=== PATIENT | female | born 1940 | race Two or more races ===

== ENCOUNTER 2020-11-13 01:21 | Inpatient (IN) | payer OTHER, MEDICARE ==
[~2020-11-13] VITALS: Ht 172.7 cm; Wt 86.3 kg
[2020-11-13 02:58] LABS: Basophils # (auto) 0 10 ^3/uL (0-0.2); Basophils % (auto) 0.2 % (0.0-2.0); Eosinophils # (auto) 0 10 ^3/uL (0-0.8); Hematocrit 39.6 % (36.0-46.0); Hemoglobin 13.4 g/dL (12.2-16.2); Lymphocytes # (auto) 0.5 10 ^3/uL (0.4-5.4); Lymphocytes % (auto) 5.9 % (10.0-50.0); Mean Corpuscular Hgb Conc. 33.7 g/dL (32.0-36.0); Mean Corpuscular Volume 91.9 fL (80.0-100.0); Monocytes # (auto) 0.5 10 ^3/uL (0-1.3); Monocytes % (auto) 5.7 % (0.0-12.0); Neutrophils % (auto) 88.2 % (37.0-80.0); Nucleated Red Blood Cells % 0.1 %; Red Blood Cells 4.31 10^6/uL (4.0-5.20); Red Cell Distribution Width 13.5 % (11.8-14.3)
[2020-11-13] MEDS ORDERED: ONDANSETRON HCL 4 MG/2 ML VIAL IV ONE (03:00)
[2020-11-13] MEDS ORDERED: ACETAMINOPHEN 325 MG TAB PO ONE (03:00)
[2020-11-13 03:13] LABS: INR 1.03 (0.9-1.15); Partial Thromboplastin Time 32.5 sec (23.6-33.0)
[2020-11-13 03:17] LABS: Albumin 2.8 g/dL (3.4-5.0); Anion Gap 12 (5-15); Blood Urea Nitrogen 28 mg/dL (7-18); Calcium 8.7 mg/dL (8.5-10.1); Carbon Dioxide 23 mmol/L (21-32); Chloride 98 mmol/L (98-107); Glucose 219 mg/dL (74-106); Potassium 3.7 mmol/L (3.5-5.1); Sodium 133 mmol/L (136-145)
[2020-11-13 03:18] LABS: Alanine Aminotransferase 16 U/L (13-56); Aspartate Aminotransferase 32 U/L (15-37); BUN/Creatinine Ratio 19.7; GFR African American 46 mL/min; GFR Non-African American 38 mL/min
[2020-11-13 03:23] LABS: Alkaline Phosphatase 79 U/L (45-117); Bilirubin, Total 0.4 mg/dL (0.2-1.0); Total Protein 7.9 g/dL (6.4-8.2)
[2020-11-13] MEDS ORDERED: DexAMETHasone SOD PHOS 10MG/1ML VIAL INJ IV ONE (07:45)
[2020-11-13] MEDS ORDERED: AZITHROMYCIN 500MG/ 250ML 250 ML IV ONE (07:45)
[2020-11-13] MEDS ORDERED: cefTRIAXone 1GM/50ML D5W 50 ML IV ONE (07:45)
[2020-11-13] MEDS ORDERED: MORPHINE SULFATE INJECTION 2 MG/ML SYRG IV PRN (12:00)
[2020-11-13] MEDS ORDERED: NITROGLYCERIN 0.4 MG SL TAB SL PRN (12:00)
[2020-11-13] MEDS ORDERED: REMDESIVIR PER PHARMACY 0 ML IV SCH (12:45)
[2020-11-13] MEDS ORDERED: diphenhdrAMINE HCL 50 MG/1 ML VL IV PRN (12:45)
[2020-11-13] MEDS ORDERED: ONDANSETRON HCL 4 MG/2 ML VIAL IV PRN (13:45)
[2020-11-13] MEDS ORDERED: ACETAMINOPHEN 500 MG TAB PO PRN (13:45)
[2020-11-13] MEDS ORDERED: DEXTROSE (50%) 50ML SYRG IV PRN (13:45)
[2020-11-13] MEDS: SODIUM CHLORIDE 0.9% 1,000 ML IV SCH (13:58)
[2020-11-13] MEDS ORDERED: REMDESIVIR 200 MG in NS 210ml LOADING DOSE ADULT IV ONE (15:00)
[2020-11-13 17:00] VITALS: BP 161/79
[2020-11-13] MEDS: ACCU-CHEK COMFORT CURVE STRIP VI SCH ×2 (17:06→22:14)
[2020-11-13] MEDS: InsuLIN REG 1unit/0.01ml Soln (100units/ml) SC SCH ×2 (17:07→22:18)
[2020-11-13 17:13] VITALS: BP 161/79
[2020-11-13] MEDS: BUDESONIDE (INHALATION) 180 MCG IH IN SCH (21:36)
[2020-11-13] MEDS: ALBUTEROL SULF HFA 90MCG INH 200DOSE IN PRN (21:36)
[2020-11-13 22:00] VITALS: BP 152/84
[2020-11-13] MEDS: ENOXAPARIN SOD 40 MG/0.4 ML SYRINGE SC SCH (22:17)
[2020-11-13] MEDS: FLORASTOR (S. BOULARDII) 250 MG CAP PO SCH (22:26)
[2020-11-14] VITALS (9 sets, daily range): BP systolic 132–189; BP diastolic 58–78
[2020-11-14] MEDS: traMADol HCL 50 MG TAB PO PRN ×3 (02:04→21:37)
[2020-11-14] MEDS ORDERED: hydrALAZINE HCL 20 MG/ML VL IV ONE (03:15)
[2020-11-14 05:22] LABS: Basophils # (auto) 0 10 ^3/uL (0-0.2); Basophils % (auto) 0.1 % (0.0-2.0); Eosinophils # (auto) 0 10 ^3/uL (0-0.8); Hematocrit 36.3 % (36.0-46.0); Hemoglobin 12.3 g/dL (12.2-16.2); Lymphocytes # (auto) 0.5 10 ^3/uL (0.4-5.4); Lymphocytes % (auto) 7.3 % (10.0-50.0); Mean Corpuscular Hemoglobin 30.7 pg (28.0-32.0); Mean Corpuscular Hgb Conc. 33.8 g/dL (32.0-36.0); Mean Corpuscular Volume 90.8 fL (80.0-100.0); Monocytes # (auto) 0.5 10 ^3/uL (0-1.3); Monocytes % (auto) 7.1 % (0.0-12.0); Neutrophils # (auto) 6.1 10 ^3/uL (1.6-8.6); Neutrophils % (auto) 85.5 % (37.0-80.0); Nucleated Red Blood Cells % 0.1 %; Red Cell Distribution Width 13.7 % (11.8-14.3); White Blood Cell 7.1 10^3/uL (4.4-10.8)
[2020-11-14 05:38] LABS: Albumin 2.4 g/dL (3.4-5.0); Calcium 8.6 mg/dL (8.5-10.1); Potassium 3.5 mmol/L (3.5-5.1)
[2020-11-14 05:43] LABS: BUN/Creatinine Ratio 29.7; Bilirubin, Total 0.4 mg/dL (0.2-1.0); Total Protein 7.2 g/dL (6.4-8.2)
[2020-11-14] MEDS: SODIUM CHLORIDE 0.9% 1,000 ML IV SCH ×2 (06:36→08:00)
[2020-11-14] MEDS: ACCU-CHEK COMFORT CURVE STRIP VI SCH ×3 (06:36→17:58)
[2020-11-14] MEDS: InsuLIN REG 1unit/0.01ml Soln (100units/ml) SC SCH ×3 (06:42→17:58)
[2020-11-14] MEDS: ALBUTEROL SULF HFA 90MCG INH 200DOSE IN PRN ×2 (07:07→22:02)
[2020-11-14] MEDS: BUDESONIDE (INHALATION) 180 MCG IH IN SCH ×2 (07:07→22:02)
[2020-11-14] MEDS: cefTRIAXone 1GM/50ML D5W 50 ML IV SCH (09:00)
[2020-11-14] MEDS: DexAMETHasone SOD PHOS 10MG/1ML VIAL INJ IV SCH (09:56)
[2020-11-14] MEDS: AZITHROMYCIN 500MG/ 250ML 250 ML IV SCH (09:56)
[2020-11-14] MEDS: ZINC SULFATE 220mg CAP or TAB PO SCH (09:57)
[2020-11-14] MEDS: CHOLECALCIFEROL (VITD3) 2,000 UNIT CAP/TAB PO SCH (09:57)
[2020-11-14] MEDS: ASCORBIC ACID 1,000 MG TAB PO SCH (09:57)
[2020-11-14] MEDS: PANTOPRAZOLE 40 MG TAB PO SCH (09:57)
[2020-11-14] MEDS: FLORASTOR (S. BOULARDII) 250 MG CAP PO SCH (09:57)
[2020-11-14] MEDS: ENOXAPARIN SOD 40 MG/0.4 ML SYRINGE SC SCH ×2 (09:58→21:37)
[2020-11-14] MEDS ORDERED: DEXTROSE (50%) 50ML SYRG IV PRN (11:45)
[2020-11-14] MEDS: REMDESIVIR 100mg 100 MG in SODIUM CHL 0.9% 230 ML IV SCH (15:00)
[2020-11-14] MEDS ORDERED: amLODIPine BESYLATE 5 MG TAB PO ONE (15:15)
[2020-11-15] MEDS: ACCU-CHEK COMFORT CURVE STRIP VI SCH ×5 (00:05→23:20)
[2020-11-15] MEDS: InsuLIN REG 1unit/0.01ml Soln (100units/ml) SC SCH ×5 (00:06→23:21)
[2020-11-15 05:00] VITALS: BP 129/74
[2020-11-15 06:01] LABS: Potassium 3.7 mmol/L (3.5-5.1)
[2020-11-15 06:08] LABS: BUN/Creatinine Ratio 30.2
[2020-11-15] MEDS: BUDESONIDE (INHALATION) 180 MCG IH IN SCH ×2 (06:42→20:57)
[2020-11-15] MEDS: ALBUTEROL SULF HFA 90MCG INH 200DOSE IN PRN ×2 (06:42→20:57)
[2020-11-15 08:00] VITALS: BP 175/69
[2020-11-15 09:00] VITALS: BP 140/56
[2020-11-15] MEDS: cefTRIAXone 1GM/50ML D5W 50 ML IV SCH (09:03)
[2020-11-15] MEDS: DexAMETHasone SOD PHOS 10MG/1ML VIAL INJ IV SCH ×2 (09:06→22:51)
[2020-11-15] MEDS: ASCORBIC ACID 1,000 MG TAB PO SCH (09:07)
[2020-11-15] MEDS: PANTOPRAZOLE 40 MG TAB PO SCH (09:07)
[2020-11-15] MEDS: ENOXAPARIN SOD 40 MG/0.4 ML SYRINGE SC SCH ×2 (09:08→22:51)
[2020-11-15] MEDS: CHOLECALCIFEROL (VITD3) 2,000 UNIT CAP/TAB PO SCH (09:08)
[2020-11-15] MEDS: ZINC SULFATE 220mg CAP or TAB PO SCH (09:08)
[2020-11-15] MEDS: amLODIPine BESYLATE 5 MG TAB PO SCH (10:05)
[2020-11-15] MEDS: AZITHROMYCIN 500MG/ 250ML 250 ML IV SCH (10:05)
[2020-11-15 13:00] VITALS: BP 137/74
[2020-11-15] MEDS: REMDESIVIR 100mg 100 MG in SODIUM CHL 0.9% 230 ML IV SCH (16:05)
[2020-11-15 16:53] VITALS: BP 128/60
[2020-11-15 22:00] VITALS: BP 149/69
[2020-11-16 05:00] VITALS: BP 135/68
[2020-11-16 05:32] LABS: Basophils # (auto) 0 10 ^3/uL (0-0.2); Basophils % (auto) 0.1 % (0.0-2.0); Eosinophils # (auto) 0 10 ^3/uL (0-0.8); Hemoglobin 12.4 g/dL (12.2-16.2); Lymphocytes # (auto) 0.3 10 ^3/uL (0.4-5.4); Lymphocytes % (auto) 5.8 % (10.0-50.0); Mean Corpuscular Hemoglobin 30.8 pg (28.0-32.0); Mean Corpuscular Hgb Conc. 33.6 g/dL (32.0-36.0); Mean Corpuscular Volume 91.6 fL (80.0-100.0); Monocytes # (auto) 0.5 10 ^3/uL (0-1.3); Monocytes % (auto) 8.8 % (0.0-12.0); Neutrophils # (auto) 5.1 10 ^3/uL (1.6-8.6); Neutrophils % (auto) 85.3 % (37.0-80.0); Red Blood Cells 4.04 10^6/uL (4.0-5.20); Red Cell Distribution Width 13.2 % (11.8-14.3)
[2020-11-16 05:58] LABS: BUN/Creatinine Ratio 31.6; Potassium 3.6 mmol/L (3.5-5.1)
[2020-11-16] MEDS: ACCU-CHEK COMFORT CURVE STRIP VI SCH ×4 (06:35→23:24)
[2020-11-16] MEDS: InsuLIN REG 1unit/0.01ml Soln (100units/ml) SC SCH ×4 (06:39→23:24)
[2020-11-16] MEDS: cefTRIAXone 1GM/50ML D5W 50 ML IV SCH (08:49)
[2020-11-16] MEDS: ZINC SULFATE 220mg CAP or TAB PO SCH (08:50)
[2020-11-16] MEDS: DexAMETHasone SOD PHOS 10MG/1ML VIAL INJ IV SCH ×2 (08:50→21:27)
[2020-11-16] MEDS: amLODIPine BESYLATE 5 MG TAB PO SCH (08:50)
[2020-11-16] MEDS: AZITHROMYCIN 500MG/ 250ML 250 ML IV SCH (08:50)
[2020-11-16] MEDS: PANTOPRAZOLE 40 MG TAB PO SCH (08:51)
[2020-11-16] MEDS: ASCORBIC ACID 1,000 MG TAB PO SCH (08:51)
[2020-11-16] MEDS: ENOXAPARIN SOD 40 MG/0.4 ML SYRINGE SC SCH ×2 (08:51→21:27)
[2020-11-16] MEDS: CHOLECALCIFEROL (VITD3) 2,000 UNIT CAP/TAB PO SCH (08:51)
[2020-11-16 09:00] VITALS: BP 144/65
[2020-11-16] MEDS: ALBUTEROL SULF HFA 90MCG INH 200DOSE IN PRN ×2 (09:42→21:29)
[2020-11-16] MEDS: BUDESONIDE (INHALATION) 180 MCG IH IN SCH ×2 (09:42→21:29)
[2020-11-16] MEDS ORDERED: INSULIN LANTUS (GLARGINE) 1 /0.01ml (100units/ml) SC ONE (11:30)
[2020-11-16 13:00] VITALS: BP 103/76
[2020-11-16] MEDS: REMDESIVIR 100mg 100 MG in SODIUM CHL 0.9% 230 ML IV SCH (13:20)
[2020-11-16 15:00] VITALS: BP 144/65
[2020-11-16 16:55] LABS: Urine Bacteria NONE SEEN /hpf (None Seen); Urine Blood Negative /uL (Negative); Urine Hyaline Cast FEW /lpf (0 - 2); Urine Specific Gravity 1.025 (1.001-1.035); Urine WBC 4 /hpf (0 - 5)
[2020-11-16 17:00] VITALS: BP 143/69
[2020-11-16 21:30] VITALS: BP 146/66
[2020-11-16] MEDS: INSULIN LANTUS (GLARGINE) 1 /0.01ml (100units/ml) SC SCH (23:23)
[2020-11-17 05:00] VITALS: BP 109/72
[2020-11-17] MEDS: ACCU-CHEK COMFORT CURVE STRIP VI SCH ×3 (06:00→16:27)
[2020-11-17 06:07] LABS: Albumin 2.3 g/dL (3.4-5.0); Calcium 8.9 mg/dL (8.5-10.1); Potassium 3.7 mmol/L (3.5-5.1)
[2020-11-17 06:19] LABS: BUN/Creatinine Ratio 36.2; Bilirubin, Total 0.4 mg/dL (0.2-1.0); Total Protein 6.6 g/dL (6.4-8.2)
[2020-11-17] MEDS: INSULIN LANTUS (GLARGINE) 1 /0.01ml (100units/ml) SC SCH ×2 (06:48→22:45)
[2020-11-17] MEDS: InsuLIN REG 1unit/0.01ml Soln (100units/ml) SC SCH ×3 (06:48→16:27)
[2020-11-17] MEDS: BUDESONIDE (INHALATION) 180 MCG IH IN SCH ×2 (07:31→22:00)
[2020-11-17] MEDS: ALBUTEROL SULF HFA 90MCG INH 200DOSE IN PRN (07:32)
[2020-11-17 09:00] VITALS: BP 157/76
[2020-11-17] MEDS: DexAMETHasone SOD PHOS 10MG/1ML VIAL INJ IV SCH ×2 (09:00→22:42)
[2020-11-17] MEDS: cefTRIAXone 1GM/50ML D5W 50 ML IV SCH (09:00)
[2020-11-17] MEDS: AZITHROMYCIN 500MG/ 250ML 250 ML IV SCH (09:00)
[2020-11-17] MEDS: ZINC SULFATE 220mg CAP or TAB PO SCH (09:01)
[2020-11-17] MEDS: ENOXAPARIN SOD 40 MG/0.4 ML SYRINGE SC SCH ×2 (09:01→22:42)
[2020-11-17] MEDS: PANTOPRAZOLE 40 MG TAB PO SCH (09:01)
[2020-11-17] MEDS: ASCORBIC ACID 1,000 MG TAB PO SCH (09:01)
[2020-11-17] MEDS: CHOLECALCIFEROL (VITD3) 2,000 UNIT CAP/TAB PO SCH (09:01)
[2020-11-17] MEDS: amLODIPine BESYLATE 5 MG TAB PO SCH (09:37)
[2020-11-17] MEDS ORDERED: NYSTATIN (MOUTH-THROAT) 500,000 UNITS/5 ML SUSP MT ONE (11:15)
[2020-11-17] MEDS ORDERED: FLUCONAZOLE 100 MG TAB PO ONE (11:15)
[2020-11-17] MEDS ORDERED: INSULIN LANTUS (GLARGINE) 1 /0.01ml (100units/ml) SC ONE (11:15)
[2020-11-17] MEDS: NYSTATIN (MOUTH-THROAT) 500,000 UNITS/5 ML SUSP MT SCH ×3 (12:00→22:42)
[2020-11-17 13:00] VITALS: BP 145/75
[2020-11-17] MEDS: REMDESIVIR 100mg 100 MG in SODIUM CHL 0.9% 230 ML IV SCH (15:06)
[2020-11-17 17:00] VITALS: BP 137/89
[2020-11-17 22:00] VITALS: BP 140/79
[2020-11-18] MEDS: ALBUTEROL SULF HFA 90MCG INH 200DOSE IN PRN ×3 (00:54→19:34)
[2020-11-18 05:00] VITALS: BP 161/78
[2020-11-18] MEDS: ACCU-CHEK COMFORT CURVE STRIP VI SCH ×5 (06:54→23:25)
[2020-11-18] MEDS: INSULIN LANTUS (GLARGINE) 1 /0.01ml (100units/ml) SC SCH ×2 (06:55→23:24)
[2020-11-18] MEDS: NYSTATIN (MOUTH-THROAT) 500,000 UNITS/5 ML SUSP MT SCH ×4 (06:56→22:22)
[2020-11-18] MEDS: InsuLIN REG 1unit/0.01ml Soln (100units/ml) SC SCH ×5 (06:56→23:25)
[2020-11-18] MEDS: BUDESONIDE (INHALATION) 180 MCG IH IN SCH ×2 (07:16→19:34)
[2020-11-18 09:00] VITALS: BP 162/66
[2020-11-18] MEDS: cefTRIAXone 1GM/50ML D5W 50 ML IV SCH (09:00)
[2020-11-18] MEDS: ASCORBIC ACID 1,000 MG TAB PO SCH (10:00)
[2020-11-18] MEDS: CHOLECALCIFEROL (VITD3) 2,000 UNIT CAP/TAB PO SCH (10:00)
[2020-11-18] MEDS: AZITHROMYCIN 500MG/ 250ML 250 ML IV SCH (10:00)
[2020-11-18] MEDS: FLUCONAZOLE 100 MG TAB PO SCH (10:00)
[2020-11-18] MEDS: amLODIPine BESYLATE 5 MG TAB PO SCH (10:00)
[2020-11-18] MEDS: ENOXAPARIN SOD 40 MG/0.4 ML SYRINGE SC SCH ×2 (10:00→22:22)
[2020-11-18] MEDS: PANTOPRAZOLE 40 MG TAB PO SCH (10:00)
[2020-11-18] MEDS: DexAMETHasone SOD PHOS 10MG/1ML VIAL INJ IV SCH ×2 (10:00→22:22)
[2020-11-18] MEDS: ZINC SULFATE 220mg CAP or TAB PO SCH (10:00)
[2020-11-18] MEDS ORDERED: POTASSIUM CHL 20 Meq TABLET PO ONE (11:30)
[2020-11-18] MEDS ORDERED: FUROSEMIDE 20 MG TAB PO ONE (11:30)
[2020-11-18] MEDS ORDERED: POTASSIUM EFFERVESENT TAB 25 MEQ PO ONE (11:30)
[2020-11-18 13:00] VITALS: BP 154/68
[2020-11-18 17:00] VITALS: BP 153/79
[2020-11-18 22:00] VITALS: BP 133/61
[2020-11-19] VITALS (7 sets, daily range): BP systolic 141–166; BP diastolic 68–86
[2020-11-19] MEDS: ALBUTEROL SULF HFA 90MCG INH 200DOSE IN PRN ×2 (06:53→21:36)
[2020-11-19] MEDS: BUDESONIDE (INHALATION) 180 MCG IH IN SCH ×2 (06:54→21:35)
[2020-11-19] MEDS: NYSTATIN (MOUTH-THROAT) 500,000 UNITS/5 ML SUSP MT SCH ×4 (06:55→22:17)
[2020-11-19] MEDS: InsuLIN REG 1unit/0.01ml Soln (100units/ml) SC SCH ×4 (06:56→23:22)
[2020-11-19] MEDS: ACCU-CHEK COMFORT CURVE STRIP VI SCH ×4 (06:56→23:22)
[2020-11-19] MEDS: INSULIN LANTUS (GLARGINE) 1 /0.01ml (100units/ml) SC SCH ×2 (06:56→23:21)
[2020-11-19 07:34] LABS: Calcium 8.8 mg/dL (8.5-10.1)
[2020-11-19 07:36] LABS: BUN/Creatinine Ratio 34.5
[2020-11-19] MEDS: cefTRIAXone 1GM/50ML D5W 50 ML IV SCH (09:00)
[2020-11-19] MEDS: ENOXAPARIN SOD 40 MG/0.4 ML SYRINGE SC SCH ×2 (09:52→22:17)
[2020-11-19] MEDS: ASCORBIC ACID 1,000 MG TAB PO SCH ×2 (09:52→09:55)
[2020-11-19] MEDS: FLUCONAZOLE 100 MG TAB PO SCH (09:52)
[2020-11-19] MEDS: amLODIPine BESYLATE 5 MG TAB PO SCH (09:52)
[2020-11-19] MEDS: PANTOPRAZOLE 40 MG TAB PO SCH (09:52)
[2020-11-19] MEDS: ZINC SULFATE 220mg CAP or TAB PO SCH ×2 (09:52→09:55)
[2020-11-19] MEDS: CHOLECALCIFEROL (VITD3) 2,000 UNIT CAP/TAB PO SCH ×2 (09:52→09:55)
[2020-11-19] MEDS: DexAMETHasone SOD PHOS 10MG/1ML VIAL INJ IV SCH ×2 (09:52→22:17)
[2020-11-19] MEDS: AZITHROMYCIN 500MG/ 250ML 250 ML IV SCH (09:53)
[2020-11-20 05:21] VITALS: BP 156/83
[2020-11-20 05:53] LABS: Basophils # (auto) 0 10 ^3/uL (0-0.2); Basophils % (auto) 0.2 % (0.0-2.0); Eosinophils # (auto) 0 10 ^3/uL (0-0.8); Hematocrit 36.8 % (36.0-46.0); Hemoglobin 12.5 g/dL (12.2-16.2); Lymphocytes # (auto) 0.7 10 ^3/uL (0.4-5.4); Mean Corpuscular Hemoglobin 31.1 pg (28.0-32.0); Mean Corpuscular Volume 91.2 fL (80.0-100.0); Monocytes # (auto) 0.5 10 ^3/uL (0-1.3); Monocytes % (auto) 5.4 % (0.0-12.0); Neutrophils # (auto) 7.5 10 ^3/uL (1.6-8.6); Neutrophils % (auto) 86.4 % (37.0-80.0); Nucleated Red Blood Cells % 0.1 %; Red Blood Cells 4.04 10^6/uL (4.0-5.20); Red Cell Distribution Width 13.2 % (11.8-14.3); White Blood Cell 8.6 10^3/uL (4.4-10.8)
[2020-11-20 06:06] LABS: Magnesium 2.5 mg/dL (1.6-2.6); Potassium 4.1 mmol/L (3.5-5.1)
[2020-11-20 06:09] LABS: CRP High Sensitivity 0.56 mg/dL (< 0.3)
[2020-11-20] MEDS: NYSTATIN (MOUTH-THROAT) 500,000 UNITS/5 ML SUSP MT SCH ×4 (06:19→22:04)
[2020-11-20] MEDS: ACCU-CHEK COMFORT CURVE STRIP VI SCH ×4 (06:20→23:59)
[2020-11-20] MEDS: INSULIN LANTUS (GLARGINE) 1 /0.01ml (100units/ml) SC SCH ×2 (06:57→22:15)
[2020-11-20] MEDS: InsuLIN REG 1unit/0.01ml Soln (100units/ml) SC SCH ×3 (06:57→17:17)
[2020-11-20 09:00] VITALS: BP 150/66
[2020-11-20] MEDS: BUDESONIDE (INHALATION) 180 MCG IH IN SCH ×2 (09:24→19:32)
[2020-11-20] MEDS: ALBUTEROL SULF HFA 90MCG INH 200DOSE IN PRN ×2 (09:25→19:32)
[2020-11-20] MEDS: ZINC SULFATE 220mg CAP or TAB PO SCH (09:28)
[2020-11-20] MEDS: AZITHROMYCIN 500MG/ 250ML 250 ML IV SCH (09:28)
[2020-11-20] MEDS: cefTRIAXone 1GM/50ML D5W 50 ML IV SCH (09:28)
[2020-11-20] MEDS: DexAMETHasone SOD PHOS 10MG/1ML VIAL INJ IV SCH (09:28)
[2020-11-20] MEDS: FLUCONAZOLE 100 MG TAB PO SCH (09:28)
[2020-11-20] MEDS: amLODIPine BESYLATE 5 MG TAB PO SCH (09:29)
[2020-11-20] MEDS: CHOLECALCIFEROL (VITD3) 2,000 UNIT CAP/TAB PO SCH (09:29)
[2020-11-20] MEDS: ASCORBIC ACID 1,000 MG TAB PO SCH (09:29)
[2020-11-20] MEDS: PANTOPRAZOLE 40 MG TAB PO SCH (09:29)
[2020-11-20] MEDS: ENOXAPARIN SOD 40 MG/0.4 ML SYRINGE SC SCH ×2 (09:30→22:04)
[2020-11-20 12:40] VITALS: BP 147/68
[2020-11-20 16:20] VITALS: BP 142/72
[2020-11-20 22:00] VITALS: BP 135/78
[2020-11-21] VITALS (8 sets, daily range): BP systolic 108–157; BP diastolic 63–82
[2020-11-21] MEDS: InsuLIN REG 1unit/0.01ml Soln (100units/ml) SC SCH ×5 (00:05→23:07)
[2020-11-21] MEDS: ACCU-CHEK COMFORT CURVE STRIP VI SCH ×4 (06:23→23:00)
[2020-11-21] MEDS: NYSTATIN (MOUTH-THROAT) 500,000 UNITS/5 ML SUSP MT SCH ×4 (06:24→22:21)
[2020-11-21] MEDS: INSULIN LANTUS (GLARGINE) 1 /0.01ml (100units/ml) SC SCH ×2 (06:31→23:03)
[2020-11-21] MEDS: BUDESONIDE (INHALATION) 180 MCG IH IN SCH ×2 (07:30→19:22)
[2020-11-21] MEDS: ALBUTEROL SULF HFA 90MCG INH 200DOSE IN PRN ×2 (07:30→19:22)
[2020-11-21] MEDS: ZINC SULFATE 220mg CAP or TAB PO SCH (09:17)
[2020-11-21] MEDS: FLUCONAZOLE 100 MG TAB PO SCH (09:18)
[2020-11-21] MEDS: PANTOPRAZOLE 40 MG TAB PO SCH (09:19)
[2020-11-21] MEDS: CHOLECALCIFEROL (VITD3) 2,000 UNIT CAP/TAB PO SCH (09:19)
[2020-11-21] MEDS: amLODIPine BESYLATE 5 MG TAB PO SCH (09:19)
[2020-11-21] MEDS: ASCORBIC ACID 1,000 MG TAB PO SCH (09:19)
[2020-11-21] MEDS ORDERED: DexAMETHasone SOD PHOS 10MG/1ML VIAL INJ IV SCH (10:00)
[2020-11-21] MEDS: ENOXAPARIN SOD 40 MG/0.4 ML SYRINGE SC SCH ×2 (10:04→22:21)
[2020-11-22 05:00] VITALS: BP 156/73
[2020-11-22] MEDS: ACCU-CHEK COMFORT CURVE STRIP VI SCH ×3 (06:00→17:26)
[2020-11-22] MEDS: INSULIN LANTUS (GLARGINE) 1 /0.01ml (100units/ml) SC SCH (06:41)
[2020-11-22] MEDS: InsuLIN REG 1unit/0.01ml Soln (100units/ml) SC SCH ×3 (06:46→17:26)
[2020-11-22] MEDS: NYSTATIN (MOUTH-THROAT) 500,000 UNITS/5 ML SUSP MT SCH ×3 (06:48→17:46)
[2020-11-22 09:21] VITALS: BP 138/75
[2020-11-22] MEDS: CHOLECALCIFEROL (VITD3) 2,000 UNIT CAP/TAB PO SCH ×2 (10:00→10:33)
[2020-11-22] MEDS: ZINC SULFATE 220mg CAP or TAB PO SCH ×2 (10:00→10:32)
[2020-11-22] MEDS: ASCORBIC ACID 1,000 MG TAB PO SCH ×2 (10:00→10:34)
[2020-11-22] MEDS ORDERED: DexAMETHasone 4 MG TAB PO SCH (10:00)
[2020-11-22] MEDS: FLUCONAZOLE 100 MG TAB PO SCH (10:32)
[2020-11-22] MEDS: ENOXAPARIN SOD 40 MG/0.4 ML SYRINGE SC SCH (10:33)
[2020-11-22] MEDS: PANTOPRAZOLE 40 MG TAB PO SCH (10:34)
[2020-11-22] MEDS: amLODIPine BESYLATE 5 MG TAB PO SCH (10:48)
[2020-11-22] MEDS: ALBUTEROL SULF HFA 90MCG INH 200DOSE IN PRN (11:31)
[2020-11-22] MEDS: BUDESONIDE (INHALATION) 180 MCG IH IN SCH (11:31)
[2020-11-22 12:46] VITALS: BP 152/72
[2020-11-22 14:29] VITALS: BP_SYST 147; BP_SYST 152; BP_DIAS 66; BP_DIAS 72
[2020-11-22 17:25] VITALS: BP 147/66
== END 2020-11-22 20:35 | disposition home or self-care (01) | DRG 871 ==
LOC: EDBD 01:21 → ER 01:24 → TELE 11:53 → TELE-EAST 16:34
PROVIDERS: ADMIT Internal Medicine; ATTEND Internal Medicine
PROC: XW033E5 Introduction of Remdesivir Anti-infective into Peripheral Vein, Percutaneous Approach, New Technology Group 5 (ICD-10-PCS; principal; 2020-11-13)
PROC: XW13325 Transfusion of Convalescent Plasma (Nonautologous) into Peripheral Vein, Percutaneous Approach, New Technology Group 5 (ICD-10-PCS; 2020-11-14)
DX: A41.89 Other specified sepsis (principal); J12.82 Pneumonia due to coronavirus disease 2019; J96.01 Acute respiratory failure with hypoxia; N17.0 Acute kidney failure with tubular necrosis; U07.1 COVID-19; I21.19 ST elevation (STEMI) myocardial infarction involving other coronary artery of inferior wall; B37.0 Candidal stomatitis; D89.839 Cytokine release syndrome, grade unspecified; E11.22 Type 2 diabetes mellitus with diabetic chronic kidney disease; I12.9 Hypertensive chronic kidney disease with stage 1 through stage 4 chronic kidney disease, or unspecified chronic kidney disease; E11.65 Type 2 diabetes mellitus with hyperglycemia; N18.30 Chronic kidney disease, stage 3 unspecified; Z79.899 Other long term (current) drug therapy; Z79.82 Long term (current) use of aspirin
CPT/HCPCS: 36415; 36600; 71045; 80048; 80053; 81001; 82306; 82728; 82805; 82962; 83036; 83605; 83615; 83735; 84132; 84484; 85025; 85379; 85610; 85730; 86141; 86850; 86900; 86901; 87426; 93005; 94640; 96361; 96365; 96366; 96367; 96368; 96375; 97110; 97116; 97530; G0378; J0696; J1100; J1815; J2405